=== PATIENT | male | born 1960 | race African-American/Black ===

== ENCOUNTER 2016-07-21 10:29 | Emergency (ER) | payer SELFPAY ==
--- NOTE | 2016-07-21 10:47 | ED Physician Documentation ---
General Adult - HISTORIAN Historian: patient - HPI Stated Complaint: neck pain Chief Complaint: Neck Pain Onset: other (month) Timing: still present, pain intermittent Severity: mild Context: No precipitating factor noted Quality: sharp intermittent pain in the right neck area. Further Comments: yes (One month history of intermittent right neck pain that is getting worse. Spasm like pain, usually he can massage area and get it feeling better. Haveing some tingling sensation in the RUE. Right handed.) - ROS CONST: no problems - PAST HX Past History: none Surgeries/Procedures: other (retina detachment) Allergies/Adverse Reactions: Allergies Allergy/AdvReac Type Severity Reaction Status Date / Time strong narcotics AdvReac Vomiting Uncoded 03/28/15 09:21 Home Medications: Ambulatory Orders Medication Instructions Recorded NK [NK] 03/28/15 - SOCIAL HX Smoking History: greater than 1 pack/day Drug Use: none - VITAL SIGNS Vital Signs: Vital Signs Temp Pulse Resp BP Pulse Ox 97.9 F 78 16 162/96 97 07/21/16 10:30 07/21/16 10:30 07/21/16 10:30 07/21/16 10:30 07/21/16 10:30 Discharge Clincal Impression: Neck muscle spasm Additional Instructions: Try using a warm compress to the area. Start taking some Aleve 220mg two tablets twice a day with food. Take some cyclobenzapine as needed for muscle spasms. If not improve to follow up with your primary care provider. Home Medications: Ambulatory Orders NK [NK] 03/28/15 Condition: Stable Disposition: 01 HOME, SELF-CARE Decision to Admit: NO Date of Decison to Admit: 07/21/16 Decision Time: 11:20
[2016-07-21 11:49] VITALS: BP 156/98
--- NOTE | 2016-07-21 14:22 | Diagnostic Imaging Report ---
[facility] [id number] [facility].[address] [id number] Report Submission Date: Jul 21, 2016 12:00:52 PM BUSHING PRESS OPERATOR Patient Study Name: JELANI HARRINGTON Date: Jul 21, 2016 11:00:26 AM BUSHING PRESS OPERATOR Modality Type: CR Gender: M Description: SPINE : 58 Institution: [facility] Physician PRISCILLA KUHN - EXAMINATION: Cervical spine, four views. HISTORY: Right-sided neck pain. FINDINGS: Vertebral body heights and alignments are normal. There is intervertebral disc space narrowing at C4-C5, C5-C6. and C6-C7 with mild anterior spurring. The base of the odontoid process is intact. There is no significant prevertebral soft tissue swelling. Facet arthropathy is noted. IMPRESSION: 1. No acute osseous abnormality. 2. Multilevel mild cervical spondylosis Electronically signed on Jul 21, 2016 12:00:52 PM BUSHING PRESS OPERATOR by: Royer ZUNIGA
== END 2016-07-21 11:41 | disposition home or self-care (01) ==
LOC: ED 10:29
DX: M62.830 Muscle spasm of back (principal)
CPT/HCPCS: 72040; 99283

== ENCOUNTER 2019-03-11 09:47 | Emergency (ER) | payer SELFPAY ==
[2018-08-07 08:08] VITALS: BP 178/94
[2019-03-11] MEDS ORDERED: methylPREDNISolone SOD SUCC 125 MG/2 ML VIAL ONE (10:04)
== END 2019-03-11 10:13 | disposition home or self-care (01) ==
LOC: ED 09:47
DX: J01.90 Acute sinusitis, unspecified (principal)
CPT/HCPCS: 96372; 99284; J2930